=== PATIENT | male | born 1985 | race Caucasian/White ===

== ENCOUNTER 2017-05-21 19:32 | Emergency (ER) | payer BC ==
[2017-05-21 19:37] VITALS: PULSE 74; RESP 16; TEMP 98.2
--- NOTE | 2017-05-21 20:29 | EDPHY ---
H & P Stated Complaint: pt says chopping onion, cut tip of 3rd L finger - Personal History Current Tetanus Diphtheria and Acellular Pertussis (TDAP): Yes - Medical/Surgical History Hx Asthma: Yes Hx Chronic Respiratory Disease: No Hx Diabetes: No Hx Cardiac Disease: No Hx Renal Disease: No Hx Cirrhosis: No Hx Alcoholism: No Hx HIV/AIDS: No Hx Splenectomy or Spleen Trauma: No Other PMH: asthma, appendectomy - Social History Smoking Status: Never smoked HPI/ROS: Chief complaint: Left middle finger laceration History of present illness: 32-year-old male presents to the emergency department for evaluation and treatment of a left middle finger laceration. Just prior to arrival he was cutting food with a knife when the knife slipped and cut the tip of his finger. He has noted a small flap to the tip. There is pain at the site of the injury. Bleeding has been controlled with a dressing. He denies abnormal coolness or paresthesias in the finger. He is moving it without difficulty. His tetanus is up-to-date. (Yassine Green) - Physical Exam Exam: General: Alert, nontoxic Skin: 0.5 cm avulsion of skin to the very tip of the left middle finger. No foreign body contamination noted. Musculoskeletal: Patient is flexing extending his left middle finger in the DIP , PIP and MCP joint well Vascular: Capillary refill brisk in the left middle finger Neurologic: Sensation intact using light touch and two-point discrimination in the left middle finger (Yassine Green) Constitutional: Initial Vital Signs Temperature (C) 36.8 C 05/21/17 19:34 Heart Rate 74 05/21/17 19:34 Respiratory Rate 16 05/21/17 19:34 Blood Pressure 123/90 H 05/21/17 19:34 O2 Sat (%) 96 05/21/17 19:34 O2 Delivery Mode Room Air Allergies/Adverse Reactions: amoxicillin Allergy (Verified 05/21/17 19:36) Penicillins Allergy (Verified 05/21/17 19:36) Home Medications: Medication Instructions Recorded Advair 500/50 (*) 05/21/17 Albuterol Hfa Anes Only 05/21/17 Singulair 05/21/17 Medical Decision Making ED Course/Re-evaluation: Patient seen under the supervision of my secondary supervising physician Dr. Lisbeth Sandoval. Patient presents to the emergency department for a left middle finger laceration. The finger is neurovascularly intact. This is a small avulsion injury. The wound is cleaned. It approximates well. I do not believe there would be an improvement in outcome with suturing. The finger is dressed. Patient is discharged home. Home care is discussed. He is referred to hand surgery for recheck. Return precautions are given. Patient voiced understanding and agreement with plan. (Yassine Green) The patient was evaluated and managed by the physician assistant professor of psychology. I have reviewed this chart and I agree with the findings and plan of care as documented , as indicated by my signature. I am the secondary supervising physician. ( Lisbeth Sandoval) Departure - Departure Disposition: Home, Routine, Self-Care Clinical Impression: Laceration Condition: Good Instructions: Acute Wounds (ED) Additional Instructions: Follow-up with a hand doctor for recheck next week If symptoms worsen or new symptoms develop return to the emergency room for recheck Referrals: NONE *PRIMARY CARE P,. [Primary Care Provider] - As per Instructions Carl Young MD [Medical Doctor] - As per Instructions
[2017-05-21 21:08] VITALS: BP 120/82; O2SAT 95
== END 2017-05-21 20:50 | disposition home or self-care (01) ==
DX: S61.213A Laceration without foreign body of left middle finger without damage to nail, initial encounter (principal); J45.909 Unspecified asthma, uncomplicated; W26.0XXA Contact with knife, initial encounter; Y99.8 Other external cause status; Y93.G1 Activity, food preparation and clean up